=== PATIENT | female | born 1990 | race Caucasian/White ===

== ENCOUNTER 2021-01-11 14:49 | Outpatient (CLI) | payer OTHER, SELFPAY ==
--- NOTE | ~2021-01-11 | XR_ITS ---
EXAMINATION: XR foot RT min 3V DATE: 01/11/2021 15:28 INDICATION: Right foot pain. TECHNIQUE: 4 views of right foot were obtained. COMPARISON: None. FINDINGS: Bone alignment is normal. No fracture. There is mild osteoarthritis of first metatarsophala ngeal joint, second proximal interphalangeal joint, and some of the midfoot joints. There are entheso phytes at the posterior and plantar aspects of calcaneal tuberosity. IMPRESSION: 1. Mild polyarticular osteoarthritis. Reviewed, dictated and finalized at location A.
--- NOTE | ~2021-01-11 | XR_ITS ---
EXAMINATION: XR foot LT min 3V DATE: 01/11/2021 15:28 INDICATION: Left foot pain. TECHNIQUE: 4 views of left foot were obtained. COMPARISON: None. FINDINGS: Bone alignment is normal. No fracture. There is mild osteoarthritis of first metatarsophala ngeal joint and some of the midfoot joints. There is an enthesophyte at plantar aspect of calcaneal t uberosity. IMPRESSION: 1. Mild polyarticular osteoarthritis. Reviewed, dictated and finalized at location A.
== END 2021-01-11 14:50 | disposition home or self-care (01) ==
PROVIDERS: PCP Family Medicine; Visit Provider Family Medicine
DX: M79.672 Pain in left foot (principal); M79.671 Pain in right foot; M15.9 Polyosteoarthritis, unspecified
CPT/HCPCS: 73630

== ENCOUNTER 2021-12-15 13:18 | Outpatient (CLI) | payer OTHER, SELFPAY ==
[2021-12-15 13:28] LABS: Basophils Absolute Auto 0.05 K/mm3 (0.00-0.10); Basophils Percent Auto 0.7 % (0.0-1.0); Eosinophils Absolute Auto 0.15 K/mm3 (0.02-0.50); Hematocrit 42.8 % (35.0-49.0); Hemoglobin 13.6 g/dL (12.0-15.0); Immature Granulocyte Absolute 0.02 K/mm3 (0.00-0.00); Immature Granulocyte Percent A 0.3 % (0.0-0.0); Lymphocytes Absolute Auto 2.42 K/mm3 (1.10-4.50); Lymphocytes Percent Auto 32.4 % (18.0-42.0); Mean Corpuscular HGB Conc 31.8 g/dL (32.0-36.0); Mean Corpuscular Hemoglobin 29.8 pg (27.0-31.0); Mean Corpuscular Volume 93.9 fL (78.0-102.0); Mean Platelet Volume 8.3 fl (9.2-11.8); Monocytes Absolute Auto 0.43 K/mm3 (0.10-0.90); Monocytes Percent Auto 5.7 % (2.0-11.0); Neutrophils Absolute Auto 4.4 K/mm3 (1.7-7.2); Neutrophils Percent Auto 58.9 % (50.0-70.0); Platelet Count Result 273 K/mm3 (150-420); Red Blood Count 4.56 M/mm3 (4.20-5.40); Red Cell Distribution Width 12.8 % (11.6-14.4); White Blood Count 7.5 K/mm3 (4.8-10.8)
[2021-12-15 13:33] LABS: Add Urine Microscopic? YES; Appearance Urine Clear (Clear); Bilirubin Urine Negative (Negative); Blood Urine Negative (Negative); Color Urine Light Yellow (Yellow); Glucose Urine UA Negative (Negative); Ketones Urine Negative (Negative); Leukocyte Esterase Ur Negative LEU/UL (Negative); Nitrate Urine Negative (Negative); Protein Urine Trace (Negative); Specific Grav Ur 1.015 (1.010-1.020); Urobilinogen Urine 0.2 mg/dL (0.2-1.0); pH Urine 5.5 (5.0-8.0)
[2021-12-15 13:38] LABS: Bacteria Urine 1+ /hpf; RBC Urine None seen /hpf (0-2); Squamous Epithelial Cell Urine Few /hpf (Few); WBC Urine 0-3 /hpf (0-3)
[2021-12-15 14:19] LABS: Alanine Aminotransferase 30 U/L (14-59); Albumin Level 3.8 g/dL (3.4-5.0); Alkaline Phosphatase 55 U/L (46-116); Anion Gap 7 mmol/L (8-16); Aspartate Amino Transferase 19 U/L (15-37); Bilirubin,Total 0.4 mg/dL (0.00-1.00); Blood Urea Nitrogen 15 mg/dL (7-18); Carbon Dioxide 28 mmol/L (21-32); Chloride 103 mmol/L (98-108); Cholesterol 245 mg/dL (0-200); Estimated Glomerular Filt Rate 51; Glucose 83 mg/dL (70-99); HDL Direct 65 mg/dL (40-60); LDL Cholesterol Calculated 156 mg/dL (<130); Osmolality Calculated 285 mOsm/kg (285-295); Potassium 4.4 mmol/L (3.5-5.1); Sodium 138 mmol/L (136-145); Thyroid Stimulating Hormone 2.38 uIU/mL (0.36-3.74); Total Protein 7.4 g/dL (6.4-8.2); Triglycerides 119 mg/dL (0-150)
== END 2021-12-15 13:19 | disposition home or self-care (01) ==
LOC: CHSLAB 13:19
PROVIDERS: PCP Family Medicine; Visit Provider Nurse Practitioner Family
DX: Z00.00 Encounter for general adult medical examination without abnormal findings (principal)
CPT/HCPCS: 36415; 80053; 80061; 81001; 84439; 84443; 85025

== ENCOUNTER 2022-04-25 08:43 | Outpatient (CLI) | payer OTHER, SELFPAY ==
[2022-04-25 09:25] LABS: Alanine Aminotransferase 33 U/L (14-59); Albumin Level 3.4 g/dL (3.4-5.0); Alkaline Phosphatase 51 U/L (46-116); Anion Gap 6 mmol/L (8-16); Aspartate Amino Transferase 16 U/L (15-37); Bilirubin,Total 0.3 mg/dL (0.00-1.00); Blood Urea Nitrogen 12 mg/dL (7-18); Calcium 8.3 mg/dL (8.5-10.1); Carbon Dioxide 27 mmol/L (21-32); Chloride 105 mmol/L (98-108); Cholesterol 188 mg/dL (0-200); Estimated Glomerular Filt Rate 53; Glucose 94 mg/dL (70-99); HDL Direct 49 mg/dL (40-60); LDL Cholesterol Calculated 112 mg/dL (<130); Osmolality Calculated 285 mOsm/kg (285-295); Sodium 138 mmol/L (136-145); Total Protein 6.9 g/dL (6.4-8.2); Triglycerides 133 mg/dL (0-150)
== END 2022-04-25 08:44 | disposition home or self-care (01) ==
PROVIDERS: PCP Family Medicine; Visit Provider Nurse Practitioner Family
DX: E78.2 Mixed hyperlipidemia (principal); R94.4 Abnormal results of kidney function studies
CPT/HCPCS: 36415; 80053; 80061

== ENCOUNTER 2022-04-28 07:49 | Outpatient (CLI) | payer OTHER, SELFPAY ==
--- NOTE | ~2022-04-28 | US_ITS ---
EXAMINATION: US renal BI DATE: 04/28/2022 08:29 INDICATION: Elevated kidney function. TECHNIQUE: Multiple ultrasound grayscale images of the kidneys were obtained. COMPARISON: None. FINDINGS: The right kidney measures 10.7 x 5.5 x 5.1 cm. The left kidney measures 10.4 x 4.1 x 4.3 cm. There ar e regions of increased echogenicity at the upper poles of both kidneys on the right with more masslik e appearance measuring approximately 3-3.5 cm. There is no hydronephrosis in either kidney. No stone s identified. The bladder is normal. IMPRESSION: 1. Region of increased echogenicity at the upper poles of both kidneys with somewhat masslike appear ance on the right measuring approximately 3 3.5 cm. This could be related to renal atrophy with fatty replacement, and more acute renal injury including pyelonephritis or acute tubular necrosis or neopl asm either benign or malignant. Recommend further evaluation with cross-sectional imaging, preferably with and without contrast and preferably MRI. 2. No hydronephrosis. Reviewed, dictated and finalized at location A. IMPRESSION: 1. Region of increased echogenicity at the upper poles of both kidneys with so mewhat masslike appearance on the right measuring approximately 3 3.5 cm. This could be related to renal atrophy with fatty replacement, and more acute renal injury including pyelonephritis or acute tubular necrosis or neoplasm either be nign or malignant. Recommend further evaluation with cross-sectional imaging, p referably with and without contrast and preferably MRI. 2. No hydronephrosis.
== END 2022-04-28 07:50 | disposition home or self-care (01) ==
LOC: CHSIMG 07:50
PROVIDERS: PCP Family Medicine; Visit Provider Nurse Practitioner Family
DX: R94.4 Abnormal results of kidney function studies (principal)
CPT/HCPCS: 76775

== ENCOUNTER 2022-05-07 07:19 | Outpatient (CLI) | payer OTHER, SELFPAY ==
--- NOTE | ~2022-05-07 | MR_ITS ---
EXAMINATION: MR abdomen wo/w con DATE: 05/07/2022 10:28 INDICATION: Kidney mass. TECHNIQUE: Magnetic resonance imaging (MRI) of the abdomen was performed without and with 20 mL Multi Lance intravenous contrast. COMPARISON: Ultrasound kidneys 04/28/2022 FINDINGS: There is a 2.5 cm cyst in the liver. The gallbladder, spleen, pancreas, and adrenal glands are normal . There are areas of focal volume loss of the kidneys. There are no dilated loops of bowel. There are no pathologically enlarged lymph nodes. There is no free intraperitoneal fluid. IMPRESSION: 1. Mild atrophy of the kidneys. No abnormal mass. Reviewed, dictated and finalized at location A.
== END 2022-05-07 07:20 | disposition home or self-care (01) ==
LOC: CHSIMG 07:21
PROVIDERS: PCP Internal Medicine; Visit Provider Nurse Practitioner Family
DX: N28.89 Other specified disorders of kidney and ureter (principal); R79.9 Abnormal finding of blood chemistry, unspecified
CPT/HCPCS: 74183; A9577

== ENCOUNTER 2023-05-31 09:14 | Outpatient (CLI) | payer OTHER, SELFPAY ==
[2023-05-31 09:28] LABS: Appearance Urine Clear (Clear); Basophils Absolute Auto 0.06 K/mm3 (0.00-0.10); Basophils Percent Auto 0.9 % (0.0-1.0); Bilirubin Urine Negative (Negative); Blood Urine 2+ (Negative); Color Urine Light Yellow (Yellow); Eosinophils Absolute Auto 0.21 K/mm3 (0.02-0.50); Eosinophils Percent Auto 3.2 % (1.0-6.0); Glucose Urine UA Negative (Negative); Hematocrit 43.4 % (35.0-49.0); Hemoglobin 13.9 g/dL (12.0-15.0); Immature Granulocyte Absolute 0.02 K/mm3 (0.00-0.00); Immature Granulocyte Percent A 0.3 % (0.0-0.0); Ketones Urine Negative (Negative); Leukocyte Esterase Ur Trace (Negative); Lymphocytes Absolute Auto 2.18 K/mm3 (1.10-4.50); Lymphocytes Percent Auto 32.8 % (18.0-42.0); Mean Corpuscular Hemoglobin 29.7 pg (27.0-31.0); Mean Corpuscular Volume 92.7 fL (78.0-102.0); Mean Platelet Volume 8.3 fl (9.2-11.8); Monocytes Absolute Auto 0.43 K/mm3 (0.10-0.90); Monocytes Percent Auto 6.5 % (2.0-11.0); Neutrophils Absolute Auto 3.8 K/mm3 (1.7-7.2); Neutrophils Percent Auto 56.3 % (50.0-70.0); Nitrate Urine Positive (Negative); Platelet Count Result 302 K/mm3 (150-420); Protein Urine Negative (Negative); Red Blood Count 4.68 M/mm3 (4.20-5.40); Red Cell Distribution Width 12.6 % (11.6-14.4); Specific Grav Ur 1.015 (1.010-1.020); Urobilinogen Urine 0.2 mg/dL (0.2-1.0); White Blood Count 6.7 K/mm3 (4.8-10.8)
[2023-05-31 09:34] LABS: Add Urine Microscopic? YES; Bacteria Urine 3+ /hpf; Squamous Epithelial Cell Urine Few /hpf (Few)
[2023-05-31 10:37] LABS: Alanine Aminotransferase 36 U/L (14-59); Albumin Level 3.6 g/dL (3.4-5.0); Alkaline Phosphatase 54 U/L (46-116); Anion Gap 10 mmol/L (8-16); Aspartate Amino Transferase 22 U/L (15-37); Bilirubin,Total 0.4 mg/dL (0.00-1.00); Blood Urea Nitrogen 15 mg/dL (7-18); Calcium 9.2 mg/dL (8.5-10.1); Carbon Dioxide 25 mmol/L (21-32); Chloride 105 mmol/L (98-108); Estimated Glomerular Filt Rate 58; Folic Acid > 20.0 ng/mL (8.6->20); Glucose 94 mg/dL (70-99); Osmolality Calculated 290 mOsm/kg (285-295); Potassium 4.4 mmol/L (3.5-5.1); Sodium 140 mmol/L (136-145); Thyroid Stimulating Hormone 2.18 uIU/mL (0.36-3.74); Total Protein 7.2 g/dL (6.4-8.2); Vitamin B12 525 pg/mL (193-986)
== END 2023-05-31 09:15 | disposition home or self-care (01) ==
LOC: CHSLAB 09:16
PROVIDERS: PCP Family Medicine; Visit Provider Family Medicine
DX: N63.11 Unspecified lump in the right breast, upper outer quadrant (principal); R53.83 Other fatigue; R00.2 Palpitations; R20.2 Paresthesia of skin
CPT/HCPCS: 36415; 80053; 81001; 82607; 82746; 84443; 85025

== ENCOUNTER 2023-06-08 08:27 | Outpatient (CLI) | payer OTHER, SELFPAY ==
--- NOTE | ~2023-06-08 | MM_ITS ---
EXAMINATION: MM diagnostic luis BI w michelle HISTORY: Upper outer quadrant right breast lump TECHNIQUE: ML, MLO and CC 3-D tomosynthesis images of both breasts were performed and synthetic 2-D i mages were generated. CAD analysis was submitted and interpreted. COMPARISON: None BREAST PARENCHYMAL COMPOSITION: The breasts are almost entirely fatty. 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 No suspicious mass or architectural distortion, malignant calcification, skin thickening or retractio n is detected. IMPRESSION: 1. Benign finding 2. Routine annual mammographic screening beginning at age 40 is recommended, unless there are interva l symptoms or physical findings BI-RADS Category 2: Benign finding(s). Reviewed, dictated and finalized at location A. IMPRESSION: 1. Benign finding 2. Routine annual mammographic screening beginning at age 40 is recommended, un less there are interval symptoms or physical findings BI-RADS Category 2: Benign finding(s).
== END 2023-06-08 08:28 | disposition home or self-care (01) ==
LOC: CHSIMG 08:29
PROVIDERS: PCP Family Medicine; Visit Provider Family Medicine
DX: Z12.31 Encounter for screening mammogram for malignant neoplasm of breast (principal); N63.11 Unspecified lump in the right breast, upper outer quadrant; R92.8 Other abnormal and inconclusive findings on diagnostic imaging of breast
CPT/HCPCS: 77062; 77066; G0279

== ENCOUNTER 2023-10-06 09:26 | Outpatient (CLI) | payer OTHER, SELFPAY ==
--- NOTE | ~2023-10-06 | XR_ITS ---
EXAMINATION: XR lumbar spine 2-3V DATE: 10/06/2023 10:00 INDICATION: Low back pain. TECHNIQUE: 3 views of lumbar spine were obtained. COMPARISON: None. FINDINGS: There is 8 degrees dextrocurvature of lumbar spine. There is mild chronic anterior wedging of T12 vertebral body. There is mildly decreased disc height at L1-L2. There are endplate osteophytes at multiple levels. There is multilevel mild facet joint osteoarthritis. IMPRESSION: 1. Mild lumbar spondylosis. Reviewed, dictated and finalized at location E. 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 Mild lumbar spondylosis.
--- NOTE | ~2023-10-06 | XR_ITS ---
EXAMINATION: XR scoliosis survey DATE: 10/06/2023 10:00 INDICATION: Idiopathic scoliosis. Low back pain. TECHNIQUE: Anteroposterior and lateral views of the entire spine standing with breast davey were ob tained. COMPARISON: None. FINDINGS: The femoral heads are at equivalent heights. There are 12 pairs of ribs. There are 5 nonrib -bearing lumbar segments. There is 10 degrees levoscoliosis from C6 to T5 by the Roe method. There i s 10 degrees dextroscoliosis from T5 to T9. There is 13 degrees levoscoliosis from T9 to T12. There i s 9 degrees dextrocurvature from T12 to L3. There is mild chronic anterior wedging of T11 and T12 maureen tebral bodies. There is mild cervical, thoracic, and lumbar spondylosis. IMPRESSION: 1. Scoliosis. 2. Mild spondylosis. Reviewed, dictated and finalized at location E. 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
== END 2023-10-06 09:27 | disposition home or self-care (01) ==
LOC: ANHIMG 09:29
PROVIDERS: PCP Family Medicine; Visit Provider Family Medicine
DX: M54.50 Low back pain, unspecified (principal); M41.25 Other idiopathic scoliosis, thoracolumbar region; M47.812 Spondylosis without myelopathy or radiculopathy, cervical region; M47.816 Spondylosis without myelopathy or radiculopathy, lumbar region; M47.814 Spondylosis without myelopathy or radiculopathy, thoracic region
CPT/HCPCS: 72082; 72100

== ENCOUNTER 2023-10-16 08:54 | Outpatient (RCR) | payer OTHER, SELFPAY ==
--- NOTE | 2023-10-16 09:43 | PTOPEVAL1 ---
Assessment and note entered by Yaniv Mercado Evaluation Information Assessment Status Evaluation Diagnosis low back pain Onset 09/19/23 Subjective Information Pt. reports she threw her back out a few weeks ago . She was bending to lift something small and felt a tingling in the back and buttock area. She reports she received a round of steroids and was improving, but was carrying groceries over the weekend and noticed pain returned. She states that pain is most notable with attempting to stand up straight and standing in one position. She reports that pain is waking her at night and sleep is more difficult. She states that walking can ease her pain. Pt. 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 She states that she is continuing to work despite her pain. She states that she can only stand up without support for 5-10 minutes, however can stand longer if she has some support. She reports that her goal is to reduce her pain with standing . Reported Pain Level Pain Score 6: Self Report Assessment PT Clinical Summary Pt. is a 33 year old female who enters the clinic with low back pain. Pt. provided extension category exercise on this date with no increase in symptoms and noted centralization of pain post Rx . She currently presents with impaired proximal l .e. and abdominal strength, impaired postural awareness, impaired trunk mobility, functional decline and pain. Continued skilled PT is indicated in order to improve these areas to allow for improved IADL performance. Plan of Care Interventions Electrical Stimulation,Hot Pack/Cold Pack,Manual Therapy,Mechanical Traction,Neuro Re-education, Patient/Caregiver Education,Therapeutic Activities, Therapeutic Exercise PT Services Indicated Yes Treatment Frequency and 2x/week x 8 visits Duration These treatments will address the objective and functional deficits as defined above. The patient will be advanced safely and appropriately in order for the patient to progress towards his/her prior level of function. Additional exercises will be introduced and as well as a comprehensive home exercise program upon discharge, if needed, ?to ensure carryover of functional gains achieved in the clinic. This treatment plan has been reviewed and agreement upon by the patient.
--- NOTE | 2023-11-01 12:20 | OPREHPOC ---
Outpatient Therapy Plan of Care This is a Multidisciplinary Plan of Care that may contain components documented by all disciplines (PT, OT, and ST.) PT Problem 1 PT Problem #1 Knowledge Deficit PT Goal 1 Goal Pt. will be independent with a HEP consisting of extension category activities. Target Visit 2 PT Problem 2 PT Problem #2 Impaired Range of Motion PT Goal 1 Goal Pt. will be able to reach to the floor with no increase in pain. Target Visit 8 PT Goal 2 Goal Pt. will demonstrate safe body mechanics with lifting an object of 10-15# from floor to waist in repetition. Target Visit 8 PT Problem 3 PT Problem #3 Impaired Gait PT Goal 1 Goal Pt. will ambulate over level surface without antalgia with equal right and left stance time. Target Visit 8 PT Problem 4 PT Problem #4 Impaired Functional Mobil PT Goal 1 Goal Pt. will present with less than 20% limitation on the Oswestry indicating improved functional mobility and comfort. Target Visit 8
--- NOTE | 2023-11-03 08:49 | PCPTNOTE ---
Pt called and cancelled due to son being ill
--- NOTE | 2023-11-15 17:08 | PCPTNOTE ---
11/15/23: Pt note was started prior to appointment but pt did not show up for her appointment today. She was called and a message was left. -Lily Montez, PT
--- NOTE | 2024-02-28 11:47 | PCPTNOTE ---
Patient has failed to return to the clinic since 11/10/23. She has not contacted the clinic and will be discharged from our care. Refer to 11/10/23 daily note for patient discharge status. Yaniv Mercado, MPT
== END 2023-11-10 20:00 | disposition home or self-care (01) ==
LOC: CHSPT 08:54
PROVIDERS: PCP Family Medicine; Visit Provider Family Medicine
DX: M41.25 Other idiopathic scoliosis, thoracolumbar region (principal)
CPT/HCPCS: 97014; 97110; 97140; 97150; 97161; G0283